=== PATIENT | male | born 1935 | race Caucasian/White ===

== ENCOUNTER 2017-02-02 11:56 | Inpatient (IN) | payer OTHER ==
--- NOTE | 2017-02-02 12:42 | PDOC ---
[id number] No Limitations - History of Present Illness Initial Comments: CHIEF COMPLAINT: 81 y/o afebrile male with PMH HTN, HLD, massive left inguinal hernia (inoperable), chronic right eye issue b/l venous stasis BIB EMS from assisted living for constipation and abdominal pain. HISTORY OF PRESENT ILLNESS: The patient states he hasn't had much of an appetite in 6 weeks and hasn't had a bowel movement in 6 weeks. He states he has a lot of lower abdominal pain. He states he is passing gas. He denies fever , chills, cough, v/d, CP, SOB, back pain. PCP is Dr. Munugia. Vital signs on arrival are within normal limits. REVIEW OF SYSTEMS: GENERAL/CONSTITUTIONAL: No fever/chills. No weakness. No weight change. HEAD, EYES, EARS, NOSE AND THROAT: No change in vision. No ear pain or discharge. No sore throat. CARDIOVASCULAR: No chest pain or shortness of breath. RESPIRATORY: No cough, wheezing, or hemoptysis. GASTROINTESTINAL: +lower abdominal pain and constipation. No nausea, vomiting, diarrhea. +left inguinal hernia GENITOURINARY: No dysuria, frequency, or change in urination. MUSCULOSKELETAL: No joint or muscle swelling or pain. No neck or back pain. SKIN: No rash or easy bruising. NEUROLOGIC: No headache, vertigo, loss of consciousness, or loss of sensation. PHYSICAL EXAM: GENERAL: The patient is awake, alert, and fully oriented, in no acute distress. He is uncomfortable appearing. HEAD: Normal with no signs of trauma. ENT: Pupils equal, round and reactive to light, extraocular movements intact, sclera anicteric. Right eye with moderate yellow drainage and right orbit with surrounding erythema without edema secondary to eye procedures. Neck supple. mucous membranes mildly dry. LUNGS: Clear to auscultation bilaterally. Normal excursion. No respiratory distress or use of accessory muscles. CV: RRR, S1/S2, no MRG. Cap refill < 2 sec. ABDOMEN: Soft, non distended, very TTP of entire lower abdomen with passive guarding. No rigidity. Extremely large left inguinal hernia that is not warm or erythematous. EXTREMITIES: Normal range of motion, no edema. NEUROLOGICAL: Normal speech, normal gait. CN II-XII grossly intact. PSYCH: Normal mood, normal affect. SKIN: Warm, dry, normal turgor, no rashes or lesions noted. <Mi Shea - Last Filed: 02/02/17 18:17> <Tonya Guo - Last Filed: 02/09/17 12:25> - General Chief Complaint: Weakness Stated Complaint: Weakness Time Seen by Provider: 02/02/17 12:29 Past History - Past Medical History Anemia: No Asthma: No Cancer: No Cardiac Disorders: No CVA: No COPD: No CHF: No Dementia: No Diabetes: No GI Disorders: Yes (OBESITY) Disorders: Yes (HYDROCELE) HTN: Yes Hypercholesterolemia: Yes Liver Disease: No Seizures: No Thyroid Disease: No - Surgical History Abdominal Surgery: No Appendectomy: No Cardiac Surgery: No Cholecystectomy: No Lung Surgery: No Neurologic Surgery: No Orthopedic Surgery: No - Psycho/Social/Smoking Cessation Hx Anxiety: No Suicidal Ideation: No Smoking Status: No Smoking History: Never smoked Have you smoked in the past 12 months: No Number of Cigarettes Smoked Daily: 0 Information on smoking cessation initiated: No Hx Alcohol Use: No Drug/Substance Use Hx: No Substance Use Type: None Hx Substance Use Treatment: No <Mi Shea - Last Filed: 02/02/17 18:17> <Tonya Guo - Last Filed: 02/09/17 12:25> - Past Medical History Allergies/Adverse Reactions: Allergies Allergy/AdvReac Type Severity Reaction Status Date / Time No Known Drug Allergies Allergy Verified 02/02/17 12:12 Home Medications: Ambulatory Orders Multivitamins [Tab-A-Vit -] 1 tab PO DAILY 09/12/16 Simvastatin [Zocor -] 20 mg PO HS 09/12/16 Ascorbic Acid [Vitamin C -] 500 mg PO DAILY tablet 09/16/16 Valsartan [Diovan] 160 mg PO DAILY tablet 09/16/16 *Physical Exam - Vital Signs Last Vital Signs Temp Pulse Resp BP Pulse Ox 97.6 F 83 21 124/54 97 02/02/17 12:00 02/02/17 12:00 02/02/17 12:00 02/02/17 12:00 02/02/17 12:00 <Mi Shea - Last Filed: 02/02/17 18:17> - Vital Signs Last Vital Signs Temp Pulse Resp BP Pulse Ox 98.8 F 78 16 111/58 96 02/03/17 20:00 02/03/17 20:00 02/03/17 20:00 02/03/17 20:00 02/03/17 09:00 <Tonya Guo - Last Filed: 02/09/17 12:25> Heart Score/ECG Review - ECG Intrepretation Comment:: Twelve-lead EKG was performed and reviewed by Dr. Guo. There is sinus rhythm with occassional PVCs. The axis is normal. The intervals are normal. Right bundle branch block. Septal infarct, age undetermined. Impression: Abnormal twelve-lead EKG <Mi Shea - Last Filed: 02/02/17 18:17> ED Treatment Course - LABORATORY CBC & Chemistry Diagram: 02/02/17 12:52 02/02/17 13:16 <Mi Shea - Last Filed: 02/02/17 18:17> - LABORATORY CBC & Chemistry Diagram: 02/03/17 06:15 02/03/17 06:15 - ADDITIONAL ORDERS Additional order review: 02/02/17 13:16 Blood Culture - Final Blood - Peripheral Venous NO GROWTH AFTER 5 DAYS INCUBATION 02/02/17 13:16 Blood Culture - Final Blood - Peripheral Venous NO GROWTH AFTER 5 DAYS INCUBATION 02/02/17 12:52 RBC 4.16 MCV 79.2 L MCHC 30.4 L RDW 22.9 H D MPV 8.2 Neutrophils % 92.0 H D Lymphocytes % 5.0 L D Monocytes % 3.0 L - Medications Given in the ED: ED Medications Discontinued Medications Generic Name Dose Route Start Last Admin Trade Name Freq PRN Reason Stop Dose Admin Acetaminophen 1,000 mg 02/02/17 12:58 02/02/17 13:21 Ofirmev Injection - IVPB 02/02/17 12:59 1,000 mg ONCE ONE Administration Sodium Chloride 1,000 mls @ 1,000 mls/hr 02/02/17 13:37 02/02/17 13:51 Normal Saline - IV 02/02/17 14:36 1,000 mls/hr ASDIR STA Administration Vancomycin HCl 1,000 mg/ 250 mls @ 250 mls/hr 02/02/17 16:12 02/02/17 17:14 Dextrose IVPB 02/02/17 17:11 250 mls/hr ONCE ONE Administration Protocol Sodium Chloride 1,000 mls @ 1,000 mls/hr 02/02/17 16:16 02/02/17 19:31 Normal Saline - IV 02/02/17 17:15 Not Given ASDIR STA Potassium Chloride/Dextrose/Sod Cl 1,000 mls @ 100 mls/hr 02/02/17 22:15 15:00 D5-1/2ns+20 Meq Kcl - IV 100 mls/hr ASDIR EVELYN Administration Potassium Chloride 100 mls @ 100 mls/hr 02/03/17 14:30 02/03/17 17:28 Potassium Chloride 10 Meq Premix Ivpb - IVPB 02/03/17 17:29 100 mls/hr Q60M EVELYN Administration Piperacillin Sod/Tazobactam Sod 50 mls @ 100 mls/hr 02/03/17 18:00 02/03/17 17: 28 Zosyn 3.375gm Ivpb (Pre-Docked) IVPB 100 mls/hr Q8H-IV EVELYN Administration Protocol Morphine Sulfate 4 mg 02/02/17 16:16 02/02/17 16:24 Morphine Injection - IVPUSH 02/02/17 16:17 4 mg ONCE ONE Administration Morphine Sulfate 2 mg 02/03/17 14:38 02/03/17 14:53 Morphine Injection - IVPUSH 2 mg Q4H PRN Administration PAIN Piperacillin Sod/Tazobactam Sod 3.375 gm 02/02/17 16:15 02/02/17 17:04 Zosyn 3.375gm Ivpb (Pre-Docked) IVPB 02/02/17 16:16 3.375 gm ONCE ONE Administration Protocol Piperacillin Sod/Tazobactam Sod 3.375 gm 02/03/17 02:00 02/03/17 02:11 Zosyn 3.375gm Ivpb (Pre-Docked) IVPB 02/03/17 02:01 3.375 gm ONCE ONE Administration <Tonya Guo - Last Filed: 02/09/17 12:25> Medical Decision Making - Medical Decision Making A/P: 81 y/o afebrile male with reported abdominal pain without a bowel movement for the past 6 weeks. Plan is as follows: 1. Labs 2. EKG 3. IV fluids 4. IV ofirmev 5. CT scan abd/pelvis 6. UA/culture Labs show leukocytosis with neutrophilia. Acute renal failure with BUN of 73 and creatinine of 2.0. (previous in 2014 was 32 and 1.3) Ct Scan abd/pelvis IMPRESSION: Development of the anterior abdominal wall air collection within the lower pelvis of uncertain etiology. Bilateral inguinal hernias containing multiple bowel loops, as well as a portion of the urinary bladder, have no significantly changed since 06/23/2016. The patient is still in pain. Ordered IV morphine. Spoke with Dr. Munguia and discussed all labs and CT scan results. He believes the free air on CT scan is coming from his left inguinal hernia. He would like the patient admitted to him, Dr. Morrison consulted for surgery and IV antibiotics started. Ordered IV vanc and zosyn. Informed the patient of the plan for admission. Placed call to Dr. Morrison. Patient's pain is now much better after morphine. Will try calling Dr. Morrison again. Dr. Morrison is currently in surgery. 2 messages have been left for him and his service states he will call back once he is out of surgery. <Mi Shea - Last Filed: 02/02/17 18:17> *DC/Admit/Observation/Transfer - Discharge Dispostion Admit: Yes <Mi Shea - Last Filed: 02/02/17 18:17> - Attestations Physician Attestion: I reviewed the case with the mid-level practitioner and agree with the mid- level practitioner's assessment, diagnosis and disposition. <Tonya Guo - Last Filed: 02/09/17 12:25> Diagnosis at time of Disposition: Infection Abdominal pain Qualifiers: Abdominal location: lower abdomen, unspecified Qualified Code(s): R10.30 - Lower abdominal pain, unspecified Umbilical hernia Qualifiers: Obstruction and gangrene presence: without obstruction or gangrene Qualified Code(s): K42.9 - Umbilical hernia without obstruction or gangrene Acute renal failure (ARF) Qualifiers: Acute renal failure type: unspecified Qualified Code(s): N17.9 - Acute kidney failure, unspecified - Discharge Dispostion Disposition: TRANSFER ACUTE CARE/OTHER HOSP - Referrals
[2017-02-02] MEDS ORDERED: ACETAMINOPHEN 1000 MG/100 ML VIAL (NON FORMULARY) IVPB ONE (12:58)
[2017-02-02 13:00] LABS: MCH 24.1 pg (25.7-33.7); MCHC 30.4 g/dl (32.0-35.9); MEAN CELL VOLUME 79.2 fl (80-96); MEAN PLT VOLUME 8.2 fl (7.5-11.1); PLATELET COUNT 341 K/MM3 (134-434); RDW 22.9 % (11.9-15.9); WHITE BLOOD COUNT 24.1 K/mm3 (4.0-10.0)
[2017-02-02] MEDS ORDERED: ACETAMINOPHEN INJECTION 100 ML IVPB ONE (13:17)
[2017-02-02 13:33] LABS: INR 1.36 (0.82-1.09); PROTHROMBIN TIME (PATIENT) 15.1 SEC (9.98-11.88)
[2017-02-02 13:34] LABS: PLATELET ESTIMATE ADEQUATE (NORMAL)
[2017-02-02 13:35] LABS: ANISOCYTOSIS 2+; HYPOCHROMIA 1+; MICROCYTOSIS 2+
[2017-02-02] MEDS ORDERED: SODIUM CHLORIDE 1,000 ML IV STA ×2 (13:37→16:16)
[2017-02-02 14:27] LABS: ALBUMIN 2.1 g/dl (3.4-5.0); BILIRUBIN,TOTAL 0.6 mg/dL (0.2-1.0); CALCIUM 8.4 mg/dL (8.5-10.1); COCKROFT - GAULT 44.77; TOT PROT 6.5 g/dl (6.4-8.2)
[2017-02-02] MEDS ORDERED: VANCOMYCIN 1,000 MG in DEXTROSE 5%-WATER - 250 ML IVPB ONE (16:12)
[2017-02-02] MEDS ORDERED: PIPERACILLIN/TAZOB 3.375 GM/50 ML PRE-DOCKED IVPB ONE (16:15)
[2017-02-02] MEDS ORDERED: morphine CARPU-JECT 4 MG/1 ML DISP.SYRIN IVPUSH ONE (16:16)
[2017-02-02] MEDS ORDERED: morphine CARPU-JECT 4 MG/1 ML DISP.SYRIN ONE (16:19)
[2017-02-02] MEDS ORDERED: VANCOMYCIN 1 GRAM (PRE-DOCKED) 250 ML IVPB ONE (16:29)
[2017-02-02] MEDS ORDERED: PIPERACILLIN/TAZOB 3.375 GM 50 ML IVPB ONE (16:30)
[2017-02-02 16:35] LABS: URINE APPEARANCE CLEAR; URINE BILIRUBIN NEGATIVE (NEGATIVE); URINE BLOOD NEGATIVE (NEGATIVE); URINE COLOR YELLOW; URINE GLUCOSE (UA) NEGATIVE (NEGATIVE); URINE KETONE NEGATIVE (NEGATIVE); URINE NITRITE NEGATIVE (NEGATIVE); URINE UROBILINOGEN 2.0 E.U/dl E.U./dl (0.2-1.0)
[2017-02-02 16:38] LABS: URINE LEUK ESTERASE TRACE (NEGATIVE); URINE PROTEIN 1+ (NEGATIVE)
[2017-02-02 16:40] LABS: URINE BACTERIA RARE /hpf (NONE SEEN); URINE MUCUS RARE; URINE RBC 3 /hpf (0-3); URINE WBC 6 /hpf (3-5)
[2017-02-02] MEDS ORDERED: morphine CARPU-JECT 2 MG/1 ML DISP.SYRIN IM PRN (22:04)
[2017-02-02] MEDS: D5-1/2NS+20 MEQ KCL - 1,000 ML IV SCH (23:11)
[2017-02-03] MEDS ORDERED: PIPERACILLIN/TAZOB 3.375 GM/50 ML PRE-DOCKED IVPB ONE (02:00)
[2017-02-03] MEDS ORDERED: PIPERACILLIN/TAZOB 3.375 GM/50 ML PRE-DOCKED IVPB SCH (02:00)
[2017-02-03 05:46] VITALS: BMI 30.4
[2017-02-03 07:51] LABS: MCH 24.3 pg (25.7-33.7); MEAN CELL VOLUME 78.4 fl (80-96); MEAN PLT VOLUME 8.2 fl (7.5-11.1); PLATELET COUNT 307 K/MM3 (134-434); RDW 22.2 % (11.9-15.9)
[2017-02-03 08:19] LABS: ALBUMIN 1.8 g/dl (3.4-5.0); COCKROFT - GAULT 49.52; CREATININE 1.6 mg/dL (0.7-1.3)
[2017-02-03 08:22] LABS: BILIRUBIN,TOTAL 0.8 mg/dL (0.2-1.0); TOT PROT 5.9 g/dl (6.4-8.2)
--- NOTE | 2017-02-03 09:30 | HP ---
DATE OF ADMISSION: DATE OF DICTATION: 02/03/2017 HISTORY OF PRESENT ILLNESS: This is a 81-year-old male known to have large inguinal hernia extending to his left thigh, now admitted with complaints of constipation for 2 weeks and not feeling well. In the ER, he was febrile and dehydrated, so, he got admitted. This morning, he is comfortable. He is kept n.p.o. He also has basal cell carcinoma on the right lower eyelid. He has been admitted here many times in the past with hernia-related diarrhea and constipation. PHYSICAL EXAMINATION: Vital signs: Today, his blood pressure is 128/65, temperature 98, pulse 96, respirations 20. HEENT: Right eyelid has the lesion. The conjunctiva is congested on the right eye. Ear, nose, throat normal. Neck: supple. Lungs: Clear. Heart: S1, S2 normal. No S3, S4. Abdomen: The whole belly intestinal contents are in his hernia sac. Extremities: Legs, no edema. The wounds in the legs are healed. LABORATORY REPORTS: WBC 21,000, hemoglobin 9.1, hematocrit 29. Chemistry: Sodium 143, potassium 3.1, chloride 110, CO2 of 17, BUN 60, creatinine 1.6. The CT scan of the abdomen is showing some abdominal wall air collection, bilateral inguinal hernia containing multiple bowel loops. No significant change from 2 months ago. IMPRESSION: Abdominal distal obstruction, large inguinal hernia, dehydration, sepsis. PLAN: IV antibiotics, keep n.p.o., surgical consult Dr. Morrison. Cindy [id number]
--- NOTE | 2017-02-03 10:09 | CONSULT ---
Consult Consult Specialty:: Surgery: Referred by:: Ezra Reason for Consultation:: Large hernia . - History of Present Illness Chief Complaint: Constipation. - History Source History Provided By: Patient - Past Medical History Cardio/Vascular: Yes: HTN, Hyperlipdemia Gastrointestinal: Yes: Other (LARGE KLEFT INGUINAKL HERNIA (ASYMPTOMATIC) EVALUATED BY JOAN IN THE PAST)) - Alcohol/Substance Use Hx Alcohol Use: No - Smoking History Smoking history: Never smoked Have you smoked in the past 12 months: No Aproximately how many cigarettes per day: 0 Home Medications - Allergies Allergies/Adverse Reactions: Allergies Allergy/AdvReac Type Severity Reaction Status Date / Time No Known Drug Allergies Allergy Verified 02/02/17 12:12 - Home Medications Home Medications: Ambulatory Orders Multivitamins [Tab-A-Vit -] 1 tab PO DAILY 09/12/16 Simvastatin [Zocor -] 20 mg PO HS 09/12/16 Ascorbic Acid [Vitamin C -] 500 mg PO DAILY tablet 09/16/16 Valsartan [Diovan] 160 mg PO DAILY tablet 09/16/16 Physical Exam Vital Signs: Vital Signs Temperature 98.1 F 02/03/17 06:00 Pulse Rate 96 H 02/03/17 06:00 Respiratory Rate 20 02/03/17 06:00 Blood Pressure 128/65 02/03/17 06:00 O2 Sat by Pulse Oximetry (%) 98 02/02/17 21:00 Gastrointestinal: Yes: Other (Anterior abdominal wall with some redness of skin , and swelling that is not redicible. ? Infection) Labs: CBC, BMP 02/03/17 06:15 02/03/17 06:15 Imaging - Results Cat Scan: Report Reviewed (Reviewd with radiologist.? free air in suprapubic area.' : Necrotisisng faciitis., perforated diverticulitis.), Image Reviewed Problem List - Problems (1) Abdominal wall abscess Code(s): L02.211 - CUTANEOUS ABSCESS OF ABDOMINAL WALL (2) Bilateral inguinal hernia with obstruction Code(s): K40.30 - UNIL INGUINAL HERNIA, W OBST, W/O GANGR, NOT SPCF RECUR (3) Hernia, inguinal, bilateral recurrent, with obstruction Code(s): K40.31 - UNILATERAL INGUINAL HERNIA, W OBST, W/O GANGRENE, RECURRENT (4) Renal insufficiency Code(s): N28.9 - DISORDER OF KIDNEY AND URETER, UNSPECIFIED Assessment/Plan Patient should be transferred to [facility] for care. This is a very complicated problem and needs a higher level of care and personnel. I have spoken to Dr. Munguia and [facility] transfer [facility] at [facility]. Hydrate. Antibiotics.
--- NOTE | 2017-02-03 12:31 | CONSULT ---
Consultation: REQUESTING PROVIDER: CONSULT REQUEST: We have been asked to medically evaluate this patient for (ICU) . HISTORY OF PRESENT ILLNESS: Patient is a 81 year old male with PMh of HTN, HLD, b/l inguinal hernia, and right eye BCC who was BIBEMS from assisted living home for constipation and abdominal pain. The pain had a gradual onset over the last weeks and is described as a constant 10/10 without any radiation. He states his last BM was two days ago and was hard and brown. Patient states that he has been passing flatus but has lost his appetite. He denies any chest pain, SOB, SLADE, n/v/d, or fevers. Patient's WBC in the ED was 24.1 and was placed on vancomycin and zosyn. BUN/Cr was 73/2.0. CT showed anterior abdominal wall air in lower pelvis and b/l inguinal hernia with bowel loops. Patient received morphine for pain control. Surgery was consulted and was recommended to transfer to [facility]. REVIEW OF SYSTEMS: CONSTITUTIONAL: loss of appetite, weight change Absent: fever, chills, diaphoresis, generalized weakness, malaise, HEENT: Right eye discharge Absent: rhinorrhea, nasal congestion, throat pain, throat swelling, difficulty swallowing, mouth swelling, ear pain, eye pain, visual changes CARDIOVASCULAR: Absent: chest pain, syncope, palpitations, irregular heart rate, lightheadedness , peripheral edema RESPIRATORY: Absent: cough, shortness of breath, dyspnea with exertion, orthopnea, wheezing, stridor, hemoptysis GASTROINTESTINAL:abdominal pain Absent: , abdominal distension, nausea, vomiting, diarrhea, constipation, melena , hematochezia GENITOURINARY: Absent: dysuria, frequency, urgency, hesitancy, hematuria, flank pain, genital pain MUSCULOSKELETAL: Absent: myalgia, arthralgia, joint swelling, back pain, neck pain SKIN: rash (right eye) Absent: , itching, pallor HEMATOLOGIC/IMMUNOLOGIC: Absent: easy bleeding, easy bruising, lymphadenopathy, frequent infections ENDOCRINE: Absent: unexplained weight gain, unexplained weight loss, heat intolerance, cold intolerance NEUROLOGIC: Absent: headache, focal weakness or paresthesias, dizziness, unsteady gait, seizure, mental status changes, bladder or bowel incontinence PSYCHIATRIC: Absent: anxiety, depression, suicidal or homicidal ideation, hallucinations. PHYSICAL EXAMINATION Vital Signs - 24 hr 02/02/17 02/02/17 02/02/17 16:18 16:26 18:30 Temperature 99.2 F 97.7 F Pulse Rate 92 H Pulse Rate [ 81 Apical] Respiratory 20 20 Rate Blood Pressure 141/65 Blood Pressure 124/71 [Left Arm] O2 Sat by Pulse 95 Oximetry (%) 02/02/17 02/03/17 21:00 06:00 Temperature 97.7 F 98.1 F Pulse Rate 92 H 96 H Pulse Rate [ Apical] Respiratory 18 20 Rate Blood Pressure 141/65 128/65 Blood Pressure [Left Arm] O2 Sat by Pulse 98 Oximetry (%) GENERAL: Awake, alert, and fully oriented, in no acute distress. HEAD: Normal with no signs of trauma. EYES: Lesion located under right eye with yellow discharge and periorbital erythema. Erythematous conjuctiva EARS, NOSE, THROAT: Ears normal, nares patent, oropharynx clear without exudates. Moist mucous membranes. NECK: Normal range of motion, supple without lymphadenopathy, JVD, or masses. LUNGS: Breath sounds equal, clear to auscultation bilaterally. No wheezes. No accessory muscle use. Bibasilar crackles present HEART: Regular rate and rhythm, normal S1 and S2 without murmur, rub or gallop. ABDOMEN: Soft, large tender inguinal hernia sack present with palpable bowel. Bowel sounds present within sac. No masses palpated. MUSCULOSKELETAL: Normal range of motion at all joints. No bony deformities or tenderness. No CVA tenderness. UPPER EXTREMITIES: 2+ pulses, warm, well-perfused. No cyanosis. No clubbing. Cap refill <2 seconds. No peripheral edema. LOWER EXTREMITIES: 2+ pulses, warm, well-perfused. No calf tenderness. Stasis dermatitis present b/l with peripheral edema L>R NEUROLOGICAL: No facial asymmetry. Normal speech. PSYCHIATRIC: Cooperative. Good eye contact. Appropriate mood and affect. SKIN: Warm, dry, normal turgor, no rashes or lesions noted. Laboratory Results - last 24 hr 02/02/17 02/03/17 02/03/17 16:27 06:15 06:15 WBC 21.0 H RBC 3.75 L Hgb 9.1 L Hct 29.4 L MCV 78.4 L MCHC 31.0 L RDW 22.2 H Plt Count 307 MPV 8.2 Sodium 143 Potassium 3.1 L Chloride 110 H Carbon Dioxide 17 L Anion Gap 16 BUN 60 H Creatinine 1.6 H Creat Clearance w eGFR 41.90 Random Glucose 121 H Calcium 8.0 L Total Bilirubin 0.8 D AST 17 D ALT 26 D Alkaline Phosphatase 240 H D Total Protein 5.9 L Albumin 1.8 L Urine Color Yellow Urine Appearance Clear Urine pH 5.0 Ur Specific [place] 1.017 Urine Protein 1+ H Urine Glucose (UA) Negative Urine Ketones Negative Urine Blood Negative Urine Nitrite Negative Urine Bilirubin Negative Urine Urobilinogen 2.0 e.u/dl Ur Leukocyte Esterase Trace H Urine RBC 3 Urine WBC 6 Ur Epithelial Cells Rare Urine Bacteria Rare Urine Mucus Rare Active Medications Generic Name Dose Route Start Last Admin Trade Name Freq PRN Reason Stop Dose Admin Potassium Chloride/Dextrose/Sod Cl 1,000 mls @ 100 mls/hr 02/02/17 22:15 23:11 D5-1/2ns+20 Meq Kcl - IV 100 mls/hr ASDIR EVELYN Administration Morphine Sulfate 2 mg 02/02/17 22:04 Morphine Injection - IM Q6H PRN PAIN Piperacillin Sod/Tazobactam Sod 3.375 gm 02/03/17 02:00 Zosyn 3.375gm Ivpb (Pre-Docked) IVPB Q8H-IV EVELYN Vancomycin HCl 1,000 mg 02/03/17 17:00 Vancomycin (Pre-Docked) IVPB DAILY@1700 ON LICENSE OF [facility] CT ABD IMPRESSION: Development of the anterior abdominal wall air collection within the lower pelvis of uncertain etiology. Bilateral inguinal hernias containing multiple bowel loops, as well as a portion of the urinary bladder, have not significantly changed since 06/23/2016. Clinical correlation and follow-up recommended. Limited study as described above. Repeat EK:28 Sinus rhythem with premature atreal complexes, Right bundle branch block, @ 91 BPM, VT int 172, QRs 162, Qtc 504, No St T wave changes. ASSESSMENT/PLAN: Patient is a 81 year old male with PMh of HTN, HLD, b/l inguinal hernia, and right eye BCC who was BIBEMS from assisted living home for constipation and abdominal pain. Patient found to have free air in his anterior abdominal wall, possibly perforated bowel or necrotizing fasciitis. Abdominal wall free air -possibly secondary to perforated bowel or necrotizing fasciitis -continue vancomycin and zosyn for coverage -continue IV fluids (D5 1/2 NS with 20 meq KCl) -f/u blood cultures -ID consulted -Surgery consulted -transfer to [facility], awaiting bed -morphine 2mg Q6 PRN Abdominal Hernia -Same as above HTN: controlled Periorbital cellulites: questionable secondary to eye surgery or BCC superimposed infection herp v bacterial On antibiotics ID on Board consult Ophthalmology BENITA- most likely prerenal azotemia - improving BUN/Cr at 60/1.6 - Continue IV fluids Hypokalemia: - 10 meq K riders IVPB x3 repeat: EKG prologed QTc 504, no st t wave changes, RBBB same as prior EKG. - on tele patient in Ventricular bigeminy at rate of 89 bPM basel cell carcinoma: super impose infection ID on board on antibiotic Dispo: We will continue to follow the patient. Thank you for this consultative opportunity. Visit type - Emergency Visit Emergency Visit: Yes ED Registration Date: 02/02/17 Care time: The patient presented to the Emergency Department on the above date and was hospitalized for further evaluation of their emergent condition. - New Patient This patient is new to me today: Yes Date on this admission: 02/02/17 - Critical Care Critical Care patient: Yes Total Critical Care Time (in minutes): 46 Critical Care Statement: The care of this patient involved high complexity decision making to prevent further life threatening deterioration of the patient 's condition and/or to evalute & treat vital organ system(s) failure or risk of failure.
[2017-02-03] MEDS ORDERED: morphine CARPU-JECT 2 MG/1 ML DISP.SYRIN IVPUSH PRN (14:38)
[2017-02-03] MEDS: KCL 10 MEQ IVPB 100 ML IVPB SCH ×3 (14:55→17:28)
[2017-02-03] MEDS: D5-1/2NS+20 MEQ KCL - 1,000 ML IV SCH (15:00)
--- NOTE | 2017-02-03 15:24 | PN ---
Teaching Attending Note Name of Resident: Dariel Lopez ATTENDING PHYSICIAN STATEMENT I saw and evaluated the patient. I reviewed the resident's note and discussed the case with the resident. I agree with the resident's findings and plan as documented. SUBJECTIVE: In brief. 81 M, HTN, HPL, bilateral inguinal hernias, and right eye BCC. Initially admitted to the medical floor due to constipation and abdominal pain. Pain is constant, 10/10. Seen by surgical attending and there a concern for localized perforation noted on CT imaging. Transferred to the ICU for volume resuscitation. At present hemodynamics are stable. Patient is awake and alert. At present, he only has mild abdominal discomfort that was controlled by 2mg MS. Intake & Output 01/31/17 02/01/17 02/02/17 02/03/17 23:59 23:59 23:59 23:59 Intake Total 1150 Output Total 350 Balance 1150 -350 Weight 206 lb 3 oz 206 lb 3.2 oz Last Vital Signs Temp Pulse Resp BP Pulse Ox 98.6 F 84 18 116/60 96 02/03/17 11:45 02/03/17 15:05 02/03/17 15:05 02/03/17 15:05 02/03/17 09:00 Active Medications Potassium Chloride/Dextrose/Sod Cl (D5-1/2ns+20 Meq Kcl -) 1,000 mls @ 100 mls/ hr IV ASDIR EVELYN Last Admin: 02/03/17 15:00 Dose: 100 mls/hr Potassium Chloride (Potassium Chloride 10 Meq Premix Ivpb -) 100 mls @ 100 mls/ hr IVPB Q60M EVELYN Stop: 02/03/17 17:29 Last Admin: 02/03/17 14:55 Dose: 100 mls/hr Morphine Sulfate (Morphine Injection -) 2 mg IM Q6H PRN PRN Reason: PAIN Morphine Sulfate (Morphine Injection -) 2 mg IVPUSH Q4H PRN PRN Reason: PAIN Last Admin: 02/03/17 14:53 Dose: 2 mg Piperacillin Sod/Tazobactam Sod (Zosyn 3.375gm Ivpb (Pre-Docked)) 3.375 gm IVPB Q8H-IV EVELYN Vancomycin HCl (Vancomycin (Pre-Docked)) 1,000 mg IVPB DAILY@1700 EVELYN GENERAL: Awake, alert, and fully oriented, NAD HEAD: Normal with no signs of trauma. EYES: Lesion located under right eye with yellow discharge and periorbital erythema. Erythematous conjuctiva EARS, NOSE, THROAT: Ears normal, nares patent, oropharynx clear without exudates. Moist mucous membranes. NECK: Normal range of motion, supple without lymphadenopathy, JVD, or masses. LUNGS: decreased BS at the bases, with a few rhonchi. No wheezes. No accessory muscle use. HEART: Regular rate and rhythm, normal S1 and S2 without murmur, rub or gallop. ABDOMEN: Soft, large tender inguinal hernia sack present with palpable bowel. Bowel sounds present within sac. No masses palpated. MUSCULOSKELETAL: Normal range of motion at all joints. No bony deformities or tenderness. No CVA tenderness. UPPER EXTREMITIES: 2+ pulses, warm, well-perfused. No cyanosis. No clubbing. Cap refill <2 seconds. No peripheral edema. LOWER EXTREMITIES: 2+ pulses, warm, well-perfused. No calf tenderness. Stasis dermatitis present b/l with peripheral edema L>R NEUROLOGICAL: No facial asymmetry. Normal speech. PSYCHIATRIC: Cooperative. Good eye contact. Appropriate mood and affect. SKIN: (+) discoloration on abdominal wall Laboratory Results - last 24 hr 02/02/17 02/03/17 02/03/17 16:27 06:15 06:15 WBC 21.0 H RBC 3.75 L Hgb 9.1 L Hct 29.4 L MCV 78.4 L MCHC 31.0 L RDW 22.2 H Plt Count 307 MPV 8.2 Sodium 143 Potassium 3.1 L Chloride 110 H Carbon Dioxide 17 L Anion Gap 16 BUN 60 H Creatinine 1.6 H Creat Clearance w eGFR 41.90 Random Glucose 121 H Calcium 8.0 L Total Bilirubin 0.8 D AST 17 D ALT 26 D Alkaline Phosphatase 240 H D Total Protein 5.9 L Albumin 1.8 L Urine Color Yellow Urine Appearance Clear Urine pH 5.0 Ur Specific [place] 1.017 Urine Protein 1+ H Urine Glucose (UA) Negative Urine Ketones Negative Urine Blood Negative Urine Nitrite Negative Urine Bilirubin Negative Urine Urobilinogen 2.0 e.u/dl Ur Leukocyte Esterase Trace H Urine RBC 3 Urine WBC 6 Ur Epithelial Cells Rare Urine Bacteria Rare Urine Mucus Rare Active Medications Generic Name Dose Route Start Last Admin Trade Name Freq PRN Reason Stop Dose Admin Potassium Chloride/Dextrose/Sod Cl 1,000 mls @ 100 mls/hr 02/02/17 22:15 23:11 D5-1/2ns+20 Meq Kcl - IV 100 mls/hr ASDIR EVELYN Administration Morphine Sulfate 2 mg 02/02/17 22:04 Morphine Injection - IM Q6H PRN PAIN Piperacillin Sod/Tazobactam Sod 3.375 gm 02/03/17 02:00 Zosyn 3.375gm Ivpb (Pre-Docked) IVPB Q8H-IV EVELYN Vancomycin HCl 1,000 mg 02/03/17 17:00 Vancomycin (Pre-Docked) IVPB DAILY@[address] ABD IMPRESSION: Development of the anterior abdominal wall air collection within the lower pelvis of uncertain etiology. Bilateral inguinal hernias containing multiple bowel loops, as well as a portion of the urinary bladder, have not significantly changed since 06/23/2016. Clinical correlation and follow-up recommended. Limited study as described above. ASSESSMENT/PLAN: Abdominal wall free air -> suspected bowel perforation HTN HPL Bilateral inguinal hernia containing bowel loops Right eye BCC Constipation (?) necrotizing fasciitis. Ventricular Bigeminy BENITA Broad ABX Volume resuscitation as ordered Strict I&O Follow final cultures Pain control Incentive Spirometry if able Ophthalmology evaluation Cardiology evaluation D/W surgery -> feels that the patient is better served in a tertiary care center -> For transfer to to [facility] [place] once a bed is available ICU monitoring Dr Shea Critical care time spent reviewing chart, evaluating patient and formulating plan 35 min
--- NOTE | 2017-02-03 16:55 | CONSULT ---
Consult Consult Specialty:: infectious diseases Referred by:: Reason for Consultation:: sepsis - History of Present Illness Chief Complaint: abd pain History of Present Illness: 81 y/o afebrile male with PMH HTN, HLD, massive left inguinal hernia (inoperable ), chronic right eye issue b/l venous stasis BIB EMS from assisted living for constipation and abdominal pain. patient has pain at multiple places in the abdomen also patient has rt basla ca under the rt eye currently patient feels a bit better - History Source History Provided By: Medical Record Limitations to Obtaining History: Clinical Condition - Past Medical History Cardio/Vascular: Yes: HTN, Hyperlipdemia Gastrointestinal: Yes: Other (LARGE KLEFT INGUINAKL HERNIA (ASYMPTOMATIC) EVALUATED BY JOAN IN THE PAST)) - Alcohol/Substance Use Hx Alcohol Use: No - Smoking History Smoking history: Never smoked Have you smoked in the past 12 months: No Aproximately how many cigarettes per day: 0 Home Medications - Allergies Allergies/Adverse Reactions: Allergies Allergy/AdvReac Type Severity Reaction Status Date / Time No Known Drug Allergies Allergy Verified 02/02/17 12:12 - Home Medications Home Medications: Ambulatory Orders Multivitamins [Tab-A-Vit -] 1 tab PO DAILY 09/12/16 Simvastatin [Zocor -] 20 mg PO HS 09/12/16 Ascorbic Acid [Vitamin C -] 500 mg PO DAILY tablet 09/16/16 Valsartan [Diovan] 160 mg PO DAILY tablet 09/16/16 Review of Systems - Review of Systems Constitutional: reports: No Symptoms Eyes: reports: No Symptoms HENT: reports: No Symptoms Neck: reports: No Symptoms Cardiovascular: reports: No Symptoms Respiratory: reports: No Symptoms Gastrointestinal: reports: Abdominal Pain, Vomiting, Other Genitourinary: reports: No Symptoms Musculoskeletal: reports: No Symptoms Integumentary: reports: No Symptoms Endocrine: reports: No Symptoms Hematology/Lymphatic: reports: No Symptoms Psychiatric: reports: No Symptoms Physical Exam Vital Signs: Vital Signs Temperature 98 F 02/03/17 16:00 Pulse Rate 80 02/03/17 16:00 Respiratory Rate 18 02/03/17 16:00 Blood Pressure 106/42 02/03/17 16:00 O2 Sat by Pulse Oximetry (%) 96 02/03/17 09:00 Constitutional: Yes: Calm, Moderate Distress Eyes: Yes: Conjunctiva Clear, Other (basal cell carcinoma infected under left eye) HENT: Yes: Atraumatic Neck: Yes: Supple, Trachea Midline Cardiovascular: Yes: Regular Rate and Rhythm Respiratory: Yes: Regular, Poor Air Entry Gastrointestinal: Yes: Hypoactive Bowel Sounds, Other (patient has huge) Musculoskeletal: Yes: WNL Extremities: Yes: WNL Neurological: Yes: Alert, Oriented Labs: CBC, BMP 02/03/17 06:15 02/03/17 06:15 Imaging - Results Cat Scan: Report Reviewed, Image Reviewed Assessment/Plan - Problems (1) Abdominal wall abscess Code(s): L02.211 - CUTANEOUS ABSCESS OF ABDOMINAL WALL (2) Bilateral inguinal hernia with obstruction Code(s): K40.30 - UNIL INGUINAL HERNIA, W OBST, W/O GANGR, NOT SPCF RECUR (3) Hernia, inguinal, bilateral recurrent, with obstruction Code(s): K40.31 - UNILATERAL INGUINAL HERNIA, W OBST, W/O GANGRENE, RECURRENT (4) Renal insufficiency Code(s): N28.9 - DISORDER OF KIDNEY AND URETER, UNSPECIFIED 5 basal cell carcinoma left eye plan franklin start patient on zosyn hydration close monitoring close monitoring cc time 45 min
[2017-02-03] MEDS ORDERED: VANCOMYCIN 1 GRAM (PRE-DOCKED) 1,000 MG/250 ML BAG IVPB SCH (17:00)
[2017-02-03] MEDS ORDERED: PIPERACILLIN/TAZOB 3.375 GM 50 ML IVPB SCH (18:00)
[2017-02-03 18:12] VITALS: PULSE 78
[2017-02-03 20:52] VITALS: BP 111/58; TEMP 98.8
--- NOTE | 2017-02-04 08:15 | EKG ---
Test Reason : Blood Pressure : / mmHG Vent. Rate : 091 BPM Atrial Rate : 091 BPM P-R Int : 172 ms QRS Dur : 162 ms QT Int : 410 ms P-R-T Axes : 008 -26 001 degrees QTc Int : 504 ms SINUS RHYTHM WITH PREMATURE ATRIAL COMPLEXES RIGHT BUNDLE BRANCH BLOCK MINIMAL VOLTAGE CRITERIA FOR LVH, MAY BE NORMAL VARIANT ABNORMAL ECG WHEN COMPARED WITH ECG OF 02-FEB-2017 13:09, PREMATURE VENTRICULAR COMPLEXES ARE NO LONGER PRESENT PREMATURE ATRIAL COMPLEXES ARE NOW PRESENT Confirmed by FRANCISCO BOBO MD ([id number]) on 02/04/2017 8:15:10 AM Referred By: Confirmed By:FRANCISCO BOBO MD
--- NOTE | 2017-02-04 08:22 | EKG ---
Test Reason : Blood Pressure : / mmHG Vent. Rate : 079 BPM Atrial Rate : 079 BPM P-R Int : 170 ms QRS Dur : 162 ms QT Int : 432 ms P-R-T Axes : 015 -25 004 degrees QTc Int : 495 ms SINUS RHYTHM WITH OCCASIONAL PREMATURE VENTRICULAR COMPLEXES RIGHT BUNDLE BRANCH BLOCK MINIMAL VOLTAGE CRITERIA FOR LVH, MAY BE NORMAL VARIANT SEPTAL INFARCT , AGE UNDETERMINED ABNORMAL ECG WHEN COMPARED WITH ECG OF 26-NOV-2016 14:05, PREMATURE VENTRICULAR COMPLEXES ARE NOW PRESENT [place] INTERVAL HAS DECREASED SEPTAL INFARCT IS NOW PRESENT Confirmed by JIHAN MAIER, FRANCISCO ([id number]) on 02/04/2017 8:21:58 AM Referred By: Confirmed By:FRANCISCO BOBO MD
== END 2017-02-03 20:53 | disposition short-term general hospital (02) | DRG 391 ==
LOC: JER 11:56 → JERBED 16:08 → J8W 18:45 → JICU 02-03 11:54
PROVIDERS: ADMIT Internal Medicine; ATTEND Internal Medicine
DX: K57.80 Diverticulitis of intestine, part unspecified, with perforation and abscess without bleeding (principal); M72.6 Necrotizing fasciitis; N17.9 Acute kidney failure, unspecified; L03.213 Periorbital cellulitis; K40.90 Unilateral inguinal hernia, without obstruction or gangrene, not specified as recurrent; E86.0 Dehydration; E78.5 Hyperlipidemia, unspecified; I10 Essential (primary) hypertension; E87.6 Hypokalemia
CPT/HCPCS: 29581-LT; 29581-RT; 36415; 74176-TC; 80053; 81003; 81015; 83605; 85025; 85027; 85610; 87040; 87086; 87186; 93005; 93010; 99284-25; A4649; G0463-25